=== PATIENT | male | born 1950 | race Caucasian/White ===

== ENCOUNTER → 2018-08-29 | Outpatient (CLI) | payer OTHER | LOC: M.MRI 08-16 15:45 | DX: M47.22 Other spondylosis with radiculopathy, cervical region (principal); M50.11 Cervical disc disorder with radiculopathy, high cervical region; M25.78 Osteophyte, vertebrae; E11.9 Type 2 diabetes mellitus without complications; I10 Essential (primary) hypertension; Z88.8 Allergy status to other drugs, medicaments and biological substances; Z88.2 Allergy status to sulfonamides; Z82.49 Family history of ischemic heart disease and other diseases of the circulatory system; Z82.61 Family history of arthritis; Z83.438 Family history of other disorder of lipoprotein metabolism and other lipidemia; Z87.891 Personal history of nicotine dependence ==

== ENCOUNTER 2020-10-19 13:52 | Emergency (ER) | payer OTHER ==
[~2020-10-19] VITALS: Ht 177.8 cm; Wt 108.9 kg
[2020-10-19] MEDS ORDERED: NEURONTIN100 MG PO (14:12)
[2020-10-19] MEDS ORDERED: JANUVIA25 MG PO (14:12)
[2020-10-19] MEDS ORDERED: SERTRALINE HCL100 MG PO (14:12)
[2020-10-19] MEDS ORDERED: FLOMAX0.4 MG PO (14:12)
[2020-10-19 15:13] VITALS: BP 126/87
== END 2020-10-19 15:14 | disposition home or self-care (01) ==
LOC: M.ERS 13:52
DX: U07.1 COVID-19 (principal); E11.9 Type 2 diabetes mellitus without complications; I10 Essential (primary) hypertension; Z85.46 Personal history of malignant neoplasm of prostate

== ENCOUNTER 2020-10-24 09:33 | Inpatient (IN) | payer OTHER ==
[~2020-10-24] VITALS: Ht 177.8 cm; Wt 114.0 kg
[2020-10-24] VITALS (11 sets, daily range): BP systolic 139–179; BP diastolic 60–78
[~2020-10-24 09:33] MED LIST: FLOMAX0.4 MG PO; JANUVIA25 MG PO; NEURONTIN100 MG PO; SERTRALINE HCL100 MG PO
[2020-10-24 10:57] LABS: HEMATOCRIT 41.7 % (42.0-52.0); HEMOGLOBIN 14.7 gm/dL (14.0-18.0); MCH 30.5 pg (26.0-34.0); MCHC 35.3 g/dL (28.0-37.0); MCV 86.3 fL (80.0-100.0); MPV 7.2 fl. (7.2-11.1); NUCLEATED RBCS 0 /100WBC; PLATELET COUNT* 324 thou/uL (150-400); RBC 4.83 mil/uL (4.50-6.00); RDW-CV 12.3 % (10.5-14.5); WBC 11.7 thou/uL (4.0-11.0)
[2020-10-24 11:13] LABS: CALCIUM 8.1 mg/dL (8.5-10.1)
[2020-10-24 11:16] LABS: ALBUMIN 2.7 g/dL (3.4-5.0); TOTAL BILIRUBIN 0.6 mg/dL (<0.1-1.0); TOTAL PROTEIN 7.3 g/dL (6.4-8.2)
[2020-10-24 11:17] LABS: POTASSIUM 2.8 mmol/L (3.5-5.1)
[2020-10-24 11:21] LABS: ABSOLUTE LYMPHOCYTES 0.7 thou/uL (0.8-5.3); ABSOLUTE MONOCYTES 0.7 thou/uL (0.0-1.2); ABSOLUTE NEUTROPHILS 10.3 thou/uL (1.6-8.1); PLATELET ESTIMATE ADEQUATE
[2020-10-25] VITALS (14 sets, daily range): BP systolic 104–192; BP diastolic 63–88
[2020-10-25 05:36] LABS: GLYCOHEMOGLOBIN (HGB A1C) 9.9 % (4.8-5.6)
[2020-10-25 08:18] LABS: HEMATOCRIT 41.8 % (42.0-52.0); HEMOGLOBIN 14.8 gm/dL (14.0-18.0); MCH 30.5 pg (26.0-34.0); MCHC 35.3 g/dL (28.0-37.0); MCV 86.4 fL (80.0-100.0); MPV 7.1 fl. (7.2-11.1); RBC 4.84 mil/uL (4.50-6.00); RDW-CV 12.4 % (10.5-14.5); WBC 10.9 thou/uL (4.0-11.0)
[2020-10-25 08:23] LABS: CALCIUM 8.4 mg/dL (8.5-10.1); CREATININE 0.9 mg/dL (0.6-1.3)
[2020-10-25 08:24] LABS: POTASSIUM 3.9 mmol/L (3.5-5.1)
--- NOTE | 2020-10-25 11:48 | EKG ---
[place] [address] ELECTROCARDIOGRAM REPORT Name: ELISHA KAHN Room: [address] ADM IN [facility]#: [id number] Admission: 10/24/20 Attend Phys: Devante Quinonez Discharge: Date of : 54 Date of Service: 10/24/20 1015 Report #: [id number] THIS REPORT FOR: //name// [facility] ED Test Date: 2020-10-24 Test Time: 10:15:07 Pat Name: ELISHA KAHN Department: Room: [facility] Gender: M Urologic Nurse: JOANNA : 1950 Requested By: Tom Haddad Order Number: [id number] MD: Cristi Cramer Measurements Intervals [place] Rate: 74 P: 52 NV: 127 QRS: -28 QRSD: 97 T: 65 QT: 392 QTc: 435 Interpretive Statements Sinus rhythm Abnormal R-wave progression, late transition Left ventricular hypertrophy, by voltage No previous ECG available for comparison Electronically Signed On 10-25-2020 11:48:39 CDT by Cristi Cramer [email or web address] <ELECTRONICALLY SIGNED> By: Cristi Cramer MD, FAC 10/25/20 1148 1015 1015 Cristi Cramer MD, [facility] /EPI
[2020-10-26 04:00] VITALS: BP 148/60
[2020-10-26 05:21] LABS: HEMOGLOBIN 13.8 gm/dL (14.0-18.0); MCH 30.4 pg (26.0-34.0); MCHC 34.6 g/dL (28.0-37.0); MCV 87.9 fL (80.0-100.0); RBC 4.55 mil/uL (4.50-6.00); RDW-CV 12.4 % (10.5-14.5)
[2020-10-26 05:33] LABS: CALCIUM 8.4 mg/dL (8.5-10.1); POTASSIUM 3.3 mmol/L (3.5-5.1)
[2020-10-26 08:00] VITALS: BP 189/66
[2020-10-26 13:24] VITALS: BP 174/82
[2020-10-26 13:31] LABS: APTT 24.8 Seconds (25.0-31.3); INR 1.1; PROTIME 11.2 Seconds (9.20-11.50)
--- NOTE | 2020-10-26 14:08 | NUR ---
ASSUMED CARE OF PATIENT THIS AM AT 0730. PATIENT IS LETHARGIC, WEAK, ORIENTED X 4. TELE SHOWS SR. POTASSIUM WAS LOW AT 3.3. PATIENT C/O BACK PAIN. PATIENT MEDICATED FOR PAIN AND k+ REPLACEMENT BEGUN. PATIENT'S IV ACCESS INFILTRATED. THE IV NURSE WAS NOTIFIED TO PLACE A MID LINE OR A PICC. PATIENT'S APPETITE IS POOR. O2 SATS 97 TO 98% ON 10 LITERS. PATIENT ASSISTED TO TURN Q 2 HR. TEMP WAS ELEVATED AT 100.4 THIS AM. HE IS NOW AFEBRILE. WILL CONTINUE TO MONITOR PATIENT COMFORT. HE IS IN COVID ISOLATION. NO FALLS OR INJURY. CALL LIGHT IS IN REACH.
--- NOTE | 2020-10-26 14:23 | NUR ---
Pt covid positive, on iso. CM spoke with Pt's SO. Pt normally independent, resides at home with SO. Pt has a cane that he can use if needed, does not normally require. Pt has a cpap at home, but is non compliant with use. SO stated that Pt recently tried to use it about 5-6 days ago, but it made his cough worse. No hx of HH or SNF. Pt currently on 10L, does not wear home o2. Goal is home at dc, Pt may need ex ox at dc. CM following.
[2020-10-26 20:00] VITALS: BP 139/51
[2020-10-27] VITALS: BP 160/64
[2020-10-27 04:52] VITALS: BP 123/74
--- NOTE | 2020-10-27 06:01 | NUR ---
ASSUMED CARE OF PT AFTER REPORT AT 0000 FROM WILL RN. THIS NURSE AGREES WITH PREVIOUS SPORTS TRAINER. PT ON BIPAP. FALL PRECAUTIONS IN PLACE. MAINTAINED ON ENHANCED PRECAUTION. CALL LIGHT WITHIN REACH.
[2020-10-27 08:21] LABS: ABSOLUTE EOSINOPHILS 0.2 thou/uL (0.0-0.7); ABSOLUTE LYMPHOCYTES 1.1 thou/uL (0.8-5.3); ABSOLUTE MONOCYTES 0.4 thou/uL (0.0-1.2); ABSOLUTE NEUTROPHILS 3.9 thou/uL (1.6-8.1); BASOPHILS 0.2 %; HEMATOCRIT 38.1 % (42.0-52.0); HEMOGLOBIN 13.3 gm/dL (14.0-18.0); LYMPHOCYTES 19.5 %; MCH 30.6 pg (26.0-34.0); MCHC 35.1 g/dL (28.0-37.0); MCV 87.3 fL (80.0-100.0); MONOCYTES 6.6 %; MPV 6.7 fl. (7.2-11.1); NUCLEATED RBCS 0 /100WBC; PLATELET COUNT* 329 thou/uL (150-400); POLYS 70.7 %; RBC 4.36 mil/uL (4.50-6.00); RDW-CV 12.5 % (10.5-14.5); WBC 5.6 thou/uL (4.0-11.0)
[2020-10-27 08:44] VITALS: BP 154/69
[2020-10-27 08:51] LABS: ALBUMIN 2.4 g/dL (3.4-5.0); CALCIUM 8.3 mg/dL (8.5-10.1); MAGNESIUM 1.9 mg/dL (1.8-2.4); PHOSPHORUS* 3.7 mg/dL (2.5-4.9); POTASSIUM 3.6 mmol/L (3.5-5.1); TOTAL BILIRUBIN 0.6 mg/dL (<0.1-1.0); TOTAL PROTEIN 6.6 g/dL (6.4-8.2)
--- NOTE | 2020-10-27 08:58 | CON ---
[address] [address] CONSULTATION Name: ELISHA KAHN Room: [address] IN .R.#: [id number] Admission: 10/24/20 Attend Phys: Gabriel Caicedo Discharge: Date of : 54 Report #: [id number] THIS REPORT FOR: cc: Kareem León MD, Dean L. MD Pervez,Loi YANG ~ DOC #: [id number] Loi Crane MD DATE OF CONSULTATION: 10/26/2020 REQUESTING PHYSICIAN: Dr. John Robledo. INDICATION FOR CONSULTATION: Acute hypoxemic respiratory failure secondary to COVID-19. HISTORY OF PRESENT ILLNESS: This is a 70 years old gentleman, past medical history includes a history of obstructive sleep apnea. He does have a CPAP at home, with which he says that he has had limited compliance. The patient is now admitted here with acute hypoxemic respiratory failure secondary to COVID-19. The patient was initially diagnosed on 10/19/2020 and has had symptoms for a few days before. At this time, the patient is on 10 liters nasal cannula, which he has been meeting to maintain O2 saturation in the low 90s as of yesterday. Initially, he was on 4 liters of oxygen and this had to be increased up to 12 liters to maintain O2 saturation. Overnight, however, there has been some improvement in oxygenation. He is now saturating 98% on the same amount of oxygen. Therefore, may be some room to cut back. He also has been febrile with a temperature this morning at 38.0. He does remain short of breath. He has been coughing. He has brought up small amounts of white and yellow sputum. There is no chest pain. He does not have upper respiratory complaints. There is mild swelling of lower extremities. There is no calf pain. He does have disturbed sleep at night as well as sleepiness during the day. These symptoms are currently at baseline. REVIEW OF SYSTEMS: The patient's review of systems for 12 points is negative, except as mentioned above. He has not received the COVID-19 vaccine. PAST MEDICAL HISTORY: Obstructive sleep apnea, has a CPAP at home, with which he has had limited compliance, prostate cancer, diabetes, hypertension, depression. SOCIAL HISTORY: There is no known history of smoking, ethanol abuse or drug abuse. CURRENT MEDICATIONS: List in [facility] reviewed. Home medication list, also in [facility] [place] [address] CONSULTATION Name: CRISSALEX Room: [address]#: [id number] Admission: 10/24/20 Attend Phys: Gabriel Caicedo Discharge: Date of : 54 Report #: [id number] ALLERGIES: HAS HIVES WITH ASPIRIN, ALSO SULFONAMIDE ANTIBIOTICS. FAMILY HISTORY: His girlfriend also has COVID-19. PHYSICAL EXAMINATION: GENERAL: He is alert, awake and oriented, does not appear to be in any distress at this time. However, he still is on 10 liters nasal cannula, saturating around 98%. VITAL SIGNS: Has a pulse of 82 and a blood pressure of 174/82, temperature this morning is 38.0, respiratory rate was around 20 at the time of my evaluation, heart rate 82. Body mass index is 36. HEENT: Head is normocephalic and atraumatic. He does appear to have a narrow airway. Mucous membranes are moist. NECK: Does not show raised JVP, asymmetry, mass or lymph nodes. CHEST: Symmetrical expansion on inspection and palpation. On auscultation, breath sounds are bilaterally equal, but decreased. I do not hear any added sounds. HEART: Regular. There is no murmur. ABDOMEN: Soft and nontender. EXTREMITIES: Lower extremities show trace edema. There is no calf tenderness. SKIN: Dry and intact. NEUROLOGIC: Moves all extremities bilaterally equally and spontaneously with no focal deficits identified. LABORATORY DATA: The patient's last evaluated chest x-ray is from 2 days ago. This is reviewed and compared with the previous chest x-ray, performed on the . There are bilateral infiltrates, left greater than right. There is interval worsening between these two chest x-rays. The patient's lab work also is in [facility] and this is also reviewed. ASSESSMENT AND PLAN: 1. Acute hypoxemic respiratory failure secondary to COVID-19. Considering his history of obstructive sleep apnea, I recommend that we place him on a BiPAP while asleep. Therefore, we will move him to a negative pressure room. I will also treat him with Brovana. We will recommend incentive spirometry as well as prone positioning, as well as avoiding sleeping supine and being on sides, if not prone. Also recommend ambulation to the extent feasible and out of bed to chair. 2. COVID-19. He is on dexamethasone at 6 mg. He is also on remdesivir. I recommend continuing both. Considering that he is on high-flow oxygen, I recommend that we go ahead and give him a dose of Actemra. Considering that it has been almost 2 weeks since he initially started having symptoms, I do not feel strongly either way about giving him plasma. I discussed with the patient. [place] [address] [place] [address] CONSULTATION Name: ELISHA KAHN Room: [address] IN [facility]#: [id number] Admission: 10/24/20 Attend Phys: Gabriel Caicedo Discharge: Date of : 54 Report #: [id number] He is agreeable if we were to recommend it. I did not order for now, but will follow. 3. Pulmonary infiltrates, extensive left-sided infiltrates, greater than right, consistent with secondary bacterial infection. We will continue with ceftriaxone. I did increase the dose. We will continue with Zithromax. We will broaden antibiotic coverage in case he is to decline. We will try to obtain a sputum culture. We will also obtain a nasal swab for methicillin-resistant Staphylococcus aureus. If he remains febrile, then we will repeat blood cultures. 4. Shortness of breath with elevated D-dimer. We will do a CTA chest as well as venous Dopplers. 5. Fluid overload. I do feel that overall he is total body fluid overloaded. Since I am ordering a CTA chest, I did not order Lasix for now. If he declines, then I will give him Lasix today. Otherwise, plan to give him Lasix tomorrow. 6. Deep vein thrombosis prophylaxis. We will continue with Lovenox. We will increase the dose, but we will keep it in the intermediate range unless thromboembolism is found. 7. Clostridium difficile prophylaxis. We will add Lactinex. 8. Gastrointestinal prophylaxis, Protonix. 9. Obstructive sleep apnea, see discussion above. The patient is critically ill with acute hypoxemic respiratory failure secondary to COVID-19. Total time spent providing critical care to this patient today is around 40 minutes. MD MARIA FERNANDA Mendoza/JAN <ELECTRONICALLY SIGNED> By: Loi Crane MD 10/27/20 0858 [id number] Crane MD /nt
[2020-10-27 12:45] VITALS: BP 132/65
--- NOTE | 2020-10-27 14:35 | NUR ---
Anticipate dc in a few days. Currently on 10L.
[2020-10-27 20:00] VITALS: BP 139/51
[2020-10-28] VITALS (7 sets, daily range): BP systolic 140–153; BP diastolic 53–79
--- NOTE | 2020-10-28 05:52 | NUR ---
ASSUMED CARE OF PT AFTER REPORT AT 1930. PT A&OX4. VSS. PHYSICAL ASSESSMENT COMPLETED AND CHARTED. PT ON O2 HFNC 8L/BIPAP AT HS. PT TRACING SR/SB ON TELE. PT DENIES ANY PAIN. UPDATED KENDRA (DAUGHTER) REGARDING PTS CONDITION. FALL PRECAUTIONS IN PLACE. CALL LIGHT WITHIN REACH.
[2020-10-28 05:53] LABS: ABSOLUTE BASOPHILS 0.1 thou/uL (0.0-0.2); ABSOLUTE EOSINOPHILS 0.2 thou/uL (0.0-0.7); ABSOLUTE LYMPHOCYTES 0.8 thou/uL (0.8-5.3); ABSOLUTE MONOCYTES 0.4 thou/uL (0.0-1.2); ABSOLUTE NEUTROPHILS 4.8 thou/uL (1.6-8.1); EOSINOPHILS 3.6 %; HEMATOCRIT 35.6 % (42.0-52.0); HEMOGLOBIN 12.6 gm/dL (14.0-18.0); LYMPHOCYTES 12.8 %; MCH 30.8 pg (26.0-34.0); MCHC 35.3 g/dL (28.0-37.0); MCV 87.2 fL (80.0-100.0); MONOCYTES 6.4 %; MPV 6.7 fl. (7.2-11.1); NUCLEATED RBCS 0 /100WBC; PLATELET COUNT* 371 thou/uL (150-400); POLYS 76.2 %; RBC 4.08 mil/uL (4.50-6.00); RDW-CV 12.2 % (10.5-14.5); WBC 6.4 thou/uL (4.0-11.0)
[2020-10-28 06:09] LABS: ALBUMIN 2.2 g/dL (3.4-5.0); CALCIUM 7.9 mg/dL (8.5-10.1); CREATININE 0.9 mg/dL (0.6-1.3); MAGNESIUM 1.8 mg/dL (1.8-2.4); POTASSIUM 3.7 mmol/L (3.5-5.1); PREALBUMIN 19.3 mg/dL (18.0-35.7); TOTAL BILIRUBIN 0.4 mg/dL (<0.1-1.0)
--- NOTE | 2020-10-28 13:18 | NUR ---
Continue to wean, down to 8L. Therapies ordered.
--- NOTE | 2020-10-29 | NUR ---
ASSUMED CARE OF PT AFTER REPORT AT 1930. PT A&OX4. VSS. PHYSICAL ASSESSMENT COMPLETED AND CHARTED. PT ON O2 AT HFNC 8L/BIPAP AT HS. PT TRACING SR ON TELE. PT DENIES ANY PAIN. UPDATED KENDRA (DTR) REGARDING PTS CONDITION. FALL PRECAUTIONS IN PLACE. JAYLEN LIGHT WITHIN REACH.
[2020-10-29 07:55] LABS: ABSOLUTE EOSINOPHILS 0.2 thou/uL (0.0-0.7); ABSOLUTE LYMPHOCYTES 0.8 thou/uL (0.8-5.3); ABSOLUTE MONOCYTES 0.6 thou/uL (0.0-1.2); BASOPHILS 0.4 %; EOSINOPHILS 2.7 %; HEMATOCRIT 37.1 % (42.0-52.0); HEMOGLOBIN 13.2 gm/dL (14.0-18.0); LYMPHOCYTES 10.3 %; MCH 30.6 pg (26.0-34.0); MCHC 35.6 g/dL (28.0-37.0); MONOCYTES 7.5 %; MPV 7.1 fl. (7.2-11.1); NUCLEATED RBCS 0 /100WBC; PLATELET COUNT* 430 thou/uL (150-400); POLYS 79.1 %; RBC 4.32 mil/uL (4.50-6.00); RDW-CV 12.4 % (10.5-14.5); WBC 7.5 thou/uL (4.0-11.0)
[2020-10-29 08:00] VITALS: BP 150/80
[2020-10-29 09:11] LABS: POTASSIUM 3.8 mmol/L (3.5-5.1)
[2020-10-29 09:12] LABS: ALBUMIN 2.5 g/dL (3.4-5.0); CALCIUM 8.2 mg/dL (8.5-10.1); MAGNESIUM 1.9 mg/dL (1.8-2.4); TOTAL BILIRUBIN 0.4 mg/dL (<0.1-1.0); TOTAL PROTEIN 6.4 g/dL (6.4-8.2)
[2020-10-29 12:00] VITALS: BP 146/73
--- NOTE | 2020-10-29 12:16 | NUR ---
Pt still requiring 8L o2, plan to wean to 5L or below prior to dc.
[2020-10-29 16:05] VITALS: BP 162/76
[2020-10-29 20:59] VITALS: BP 120/65
[2020-10-30] VITALS: BP 126/6
[2020-10-30 04:00] VITALS: BP 100/53
[2020-10-30 05:09] LABS: ABSOLUTE BASOPHILS 0.1 thou/uL (0.0-0.2); ABSOLUTE EOSINOPHILS 0.2 thou/uL (0.0-0.7); ABSOLUTE LYMPHOCYTES 1.1 thou/uL (0.8-5.3); ABSOLUTE MONOCYTES 0.8 thou/uL (0.0-1.2); ABSOLUTE NEUTROPHILS 7.2 thou/uL (1.6-8.1); BASOPHILS 0.6 %; EOSINOPHILS 2.3 %; HEMATOCRIT 39.6 % (42.0-52.0); LYMPHOCYTES 11.7 %; MCH 30.6 pg (26.0-34.0); MCHC 35.3 g/dL (28.0-37.0); MCV 86.7 fL (80.0-100.0); MONOCYTES 8.5 %; MPV 6.6 fl. (7.2-11.1); NUCLEATED RBCS 0 /100WBC; PLATELET COUNT* 455 thou/uL (150-400); POLYS 76.9 %; RBC 4.57 mil/uL (4.50-6.00); RDW-CV 12.4 % (10.5-14.5); WBC 9.4 thou/uL (4.0-11.0)
[2020-10-30 05:26] LABS: ALBUMIN 2.9 g/dL (3.4-5.0); CALCIUM 8.8 mg/dL (8.5-10.1); CREATININE 1.2 mg/dL (0.6-1.3); POTASSIUM 4.3 mmol/L (3.5-5.1); TOTAL BILIRUBIN 0.5 mg/dL (<0.1-1.0)
--- NOTE | 2020-10-30 06:07 | NUR ---
PT IS ABLE TO COMMUNICATE HIS NEEDS TO STAFF EFFECTIVELY. CURRENT PAIN MEDICATION REGIMEN HAS BEEN ADEQUATE FOR CONTROLLING HIS PAIN UP TO THIS TIME. ENHANCED ISOLATION PRECAUTIONS, FOR COVID-19 POSITIVE TEST RESULT, MAINTAINED.
--- NOTE | 2020-10-30 07:10 | NUR ---
CHANGE OF SHIFT BEDSIDE REPORT GIVEN PATIENT SEEN AT BEDSIDE, IN BED ASLEEP ASSUMED PATIENT CARE
[2020-10-30 08:00] VITALS: BP 112/63
[2020-10-30] MEDS ORDERED: DOXYCYCLINE 10100 MG PO (12:14)
[2020-10-30] MEDS ORDERED: DEXAMETHASONE1 MG PO (12:15)
[2020-10-30] MEDS ORDERED: PROTONIX40 M4 PO (12:15)
[2020-10-30 12:56] VITALS: BP 139/72
--- NOTE | 2020-10-30 14:58 | NUR ---
Pt discharging to home today. Pt needs home o2, faxed order and referral to [facility], await premission to dispense o2 tank.
[2020-10-30 15:36] VITALS: BP 139/72
[2020-10-30 15:59] VITALS: BP 139/72
== END 2020-10-30 20:15 | disposition home or self-care (01) | DRG 871 ==
LOC: M.ERS 09:33 → M.2W 10:08 → M.ICU 10:08 → M.TBA-ER 10:08 → M.ICU 11:47 → M.2W 10-25 10:37
PROVIDERS: Family Medicine; Internal Medicine; Internal Medicine Critical Care Medicine; ADMIT Internal Medicine; ATTEND Internal Medicine
PROC: XW033E5 Introduction of Remdesivir Anti-infective into Peripheral Vein, Percutaneous Approach, New Technology Group 5 (ICD-10-PCS; principal; 2020-10-24)
PROC: 5A0935A Assistance with Respiratory Ventilation, Less than 24 Consecutive Hours, High Flow/Velocity Cannula (ICD-10-PCS; principal; 2020-10-24)
PROC: XW033H5 Introduction of Tocilizumab into Peripheral Vein, Percutaneous Approach, New Technology Group 5 (ICD-10-PCS; principal; 2020-10-24)
PROC: 5A0935A Assistance with Respiratory Ventilation, Less than 24 Consecutive Hours, High Flow/Velocity Cannula (ICD-10-PCS; 2020-10-25)
PROC: 5A0935A Assistance with Respiratory Ventilation, Less than 24 Consecutive Hours, High Flow/Velocity Cannula (ICD-10-PCS; 2020-10-26)
PROC: 5A09357 Assistance with Respiratory Ventilation, Less than 24 Consecutive Hours, Continuous Positive Airway Pressure (ICD-10-PCS; 2020-10-26)
PROC: 05HF33Z Insertion of Infusion Device into Left Cephalic Vein, Percutaneous Approach (ICD-10-PCS; 2020-10-26)
PROC: 5A09357 Assistance with Respiratory Ventilation, Less than 24 Consecutive Hours, Continuous Positive Airway Pressure (ICD-10-PCS; 2020-10-27)
PROC: 5A0935A Assistance with Respiratory Ventilation, Less than 24 Consecutive Hours, High Flow/Velocity Cannula (ICD-10-PCS; 2020-10-27)
PROC: 5A0935A Assistance with Respiratory Ventilation, Less than 24 Consecutive Hours, High Flow/Velocity Cannula (ICD-10-PCS; 2020-10-28)
PROC: 5A09357 Assistance with Respiratory Ventilation, Less than 24 Consecutive Hours, Continuous Positive Airway Pressure (ICD-10-PCS; 2020-10-28)
PROC: 5A0935A Assistance with Respiratory Ventilation, Less than 24 Consecutive Hours, High Flow/Velocity Cannula (ICD-10-PCS; 2020-10-29)
PROC: 5A09357 Assistance with Respiratory Ventilation, Less than 24 Consecutive Hours, Continuous Positive Airway Pressure (ICD-10-PCS; 2020-10-29)
DX: A41.89 Other specified sepsis (principal); U07.1 COVID-19; J96.01 Acute respiratory failure with hypoxia; J12.82 Pneumonia due to coronavirus disease 2019; E11.9 Type 2 diabetes mellitus without complications; F32.9 Major depressive disorder, single episode, unspecified; I10 Essential (primary) hypertension; E87.70 Fluid overload, unspecified; G47.33 Obstructive sleep apnea (adult) (pediatric); E87.6 Hypokalemia; E66.01 Morbid (severe) obesity due to excess calories; D72.829 Elevated white blood cell count, unspecified; B95.62 Methicillin resistant Staphylococcus aureus infection as the cause of diseases classified elsewhere; Z85.46 Personal history of malignant neoplasm of prostate; Z88.6 Allergy status to analgesic agent; Z88.2 Allergy status to sulfonamides; Z68.36 Body mass index [BMI] 36.0-36.9, adult